=== PATIENT | female | born 1975 | race Caucasian/White ===

== ENCOUNTER 2018-11-19 09:47 | Observation (INO) ==
[2018-11-14 13:28] LABS: URINE SOURCE CLEAN CATCH
[2018-11-14 13:39] LABS: BASO# 0.02 X1000 (0.0-0.2); BASO% 0.3 % (0.0-0.8); EOS# 0.21 X1000 (0.0-0.7); HEMATOCRIT 39.2 % (37.0-47.0); IMM GRAN# 0.03 X1000 (0.0-0.04); IMM GRAN% 0.4 % (0.0-0.5); LYMPH# 1.38 X1000 (1.2-3.4); LYMPH% 19.9 % (20.5-51.1); MCH 29.5 PG (27-31); MCHC 33.2 g/dL (33-37); MCV 88.9 FL (81-99); MONO% 7.2 % (1.7-9.3); MPV 10.9 FL (7.4-10.4); NEUT# 4.79 X1000 (1.4-6.5); NEUT% 69.2 % (42.2-75.2); PLT 206 X1000 (130-400); RBC 4.41 XMIL (4.2-5.4); RDW 14.5 % (11.5-14.5); WBC 6.93 X1000 (4.8-10.8)
--- NOTE | 2018-11-14 13:43 | EKG Report ---
Test Performed on : 11/14/2018 12:54:12 PM Test Reason : PAT Blood Pressure : / mmHG Vent. Rate : 063 BPM Atrial Rate : 063 BPM P-R Int : 148 ms QRS Dur : 078 ms QT Int : 390 ms P-R-T Axes : 025 036 031 degrees QTc Int : 399 ms Normal sinus rhythm. Cannot rule out Anterior infarct , age undetermined Abnormal ECG No previous ECGs available Confirmed by Raudel PEDRAZA, Micah Valencia ([id number]) on 11/17/2018 4:37:43 PM
[2018-11-14 13:46] LABS: INR 1.02; PROTIME 14.2 Seconds (11.0-16.0)
[2018-11-14 13:50] LABS: BILIRUBIN URINE NEGATIVE (NEGATIVE); BLOOD URINE NEGATIVE (NEGATIVE); COLOR YELLOW; GLUCOSE URINE NEGATIVE (NEGATIVE); KETONE URINE NEGATIVE (NEGATIVE); LEUKOCYTES URINE NEGATIVE (NEGATIVE); NITRITE URINE NEGATIVE (NEGATIVE); PROTEIN URINE NEGATIVE (NEGATIVE); SP GRAVITY URINE 1.013; TURBIDITY URINE CLEAR (CLEAR); UR EPITHELIAL CELLS <10 /HPF (<10); URINE BACTERIA NEGATIVE /HPF; URINE RBC <10 /HPF (<10); URINE WBC <10 /HPF (<10); UROBILINOGEN URINE NORMAL (NORMAL)
[2018-11-14 14:46] LABS: AGAP 9; BUN 10 mg/dL (8-22); CALCIUM 8.6 mg/dL (8.8-10.2); CHLORIDE 104 mmol/L (98-107); COSMO 276; CREATININE 0.8 mg/dL (0.5-0.9); ESTIMATED GFR > 60; GLUCOSE 91 mg/dL (70-104); POTASSIUM 4.3 mmol/L (3.5-5.1); SODIUM 139 mmol/L (136-145); TCO2 26 mmol/L (25-35)
[2018-11-19] MEDS ORDERED: PEPCID ONE (10:25)
[2018-11-19] MEDS ORDERED: COLACE ONE (10:25)
[2018-11-19] MEDS ORDERED: REGLAN ONE (10:25)
[2018-11-19] MEDS ORDERED: KEFZOL 1 GM/D5W 2 GM/100 ML IVPB ONE (10:26)
[2018-11-19] MEDS ORDERED: LYRICA ONE (10:26)
[2018-11-19] MEDS ORDERED: LR 1,000 ML ONE (10:26)
[2018-11-19] MEDS ORDERED: CELEBREX ONE (10:26)
[2018-11-19] MEDS ORDERED: TORADOL ONE (11:19)
[2018-11-19] MEDS ORDERED: VANCOMYCIN ONE (11:19)
[2018-11-19] MEDS ORDERED: MARCAINE 0.25% PF/EPI 1:200,000 ONE (11:19)
[2018-11-19] MEDS ORDERED: DURAMORPH ONE (11:19)
[2018-11-19] MEDS ORDERED: EXPAREL 1.3% ONE (11:20)
[2018-11-19] MEDS ORDERED: SODIUM CHLORIDE 0.9% ONE (11:20)
[2018-11-19] MEDS ORDERED: NEOSPORIN G.U. IRRIGANT ONE (11:20)
[2018-11-19] MEDS ORDERED: XYLOCAINE-MPF 2% ONE (11:28)
[2018-11-19] MEDS ORDERED: DIPRIVAN 1% ONE (11:28)
[2018-11-19] MEDS ORDERED: VERSED ONE (11:34)
[2018-11-19] MEDS: CYKLOKAPRON 1,000 MG/NS 1,000 MG/100 ML IVPB ONE ×2 (11:50→13:00)
[2018-11-19] MEDS ORDERED: FENTANYL ONE (12:06)
[2018-11-19] MEDS ORDERED: DECADRON ONE (12:13)
[2018-11-19] MEDS ORDERED: OFIRMEV 1000 MG/ISOTONIC SOLN 1,000 MG/100 ML BOTTLE ONE (12:16)
[2018-11-19] MEDS ORDERED: ZOFRAN ONE (12:16)
[2018-11-19 13:00] LABS: URINE SOURCE CATH
[2018-11-19 13:04] LABS: BILIRUBIN URINE NEGATIVE (NEGATIVE); BLOOD URINE NEGATIVE (NEGATIVE); COLOR STRAW; GLUCOSE URINE NEGATIVE (NEGATIVE); KETONE URINE NEGATIVE (NEGATIVE); LEUKOCYTES URINE NEGATIVE (NEGATIVE); NITRITE URINE NEGATIVE (NEGATIVE); PROTEIN URINE NEGATIVE (NEGATIVE); TURBIDITY URINE CLEAR (CLEAR); UR EPITHELIAL CELLS <10 /HPF (<10); URINE BACTERIA NEGATIVE /HPF; URINE RBC <10 /HPF (<10); URINE WBC <10 /HPF (<10); UROBILINOGEN URINE NORMAL (NORMAL)
--- NOTE | 2018-11-19 13:34 | OPERATIVE NOTE ---
PROCEDURE DATE: 11/19/2018 PREOPERATIVE DIAGNOSIS: Degenerative joint disease, right knee. POSTOPERATIVE DIAGNOSIS: Degenerative joint disease, right knee. PROCEDURE PERFORMED: Right total knee arthroplasty. SURGEON: Chidi Rabago MD AERIAL TRAM OPERATOR: CALIXTO Hollis. Mr. Day was necessary for proper retraction and manipulation during the case. ANESTHESIA: General. COMPLICATION: None. PROCEDURE IN DETAIL: This 43-year-old female presents for a right total knee replacement. Risks, benefits, and no guarantees were discussed, and she is willing to proceed. She was taken to the operating room and satisfactory anesthesia obtained. The right leg was prepped and draped in the usual sterile fashion. A time-out was taken to confirm operative site, procedure, and patient. The leg was wrapped in an Esmarch and tourniquet inflated to 300 mmHg. A midline incision was made over the front of the knee, followed by a quadriceps tendon-sparing arthrotomy. The patella was everted and resurfaced with freehand technique and subluxed laterally. The knee was flexed and an intramedullary hole made in the distal femur and the distal femoral cutting block secured in 5 degrees of valgus. Distal femoral resection was made and the femur sized to a DePuy Attune size 6 femoral component. The 4-in-1 block was secured the anterior posterior and the anterior, posterior, and chamfer cuts sequentially made. Care was taken to preserve the PCL and collateral ligaments. Any osteophytes were debrided from the femur. The knee was then flexed and a PCL retractor placed behind the tibia to protect the PCL and neurovascular bundle. The tibial cutting block was secured with extramedullary alignment and the tibial resection made. Flexion and extension gaps were equal with a 7 mm spacer. The tibia was sized to a size 6 tibial tray. A trial reduction revealed good range of motion and stability with a 7 mm rotating platform trial poly. The patella was sized to a 35 medialized dome patella. Midline patellar tracking was noted. The lug holes were placed for the femoral implant and the patellar implant and the trial components removed. The bony surfaces were thoroughly irrigated with pulsatile lavage. Cement with 1 g vancomycin was utilized to cement a DePuy Attune size 6 rotating platform tibial tray, a size 6 regular width right cruciate retaining femoral component, and a 35 medialized dome patella. Excess cement was removed with a Sharps elevator. While the cement cured, the joint capsule was injected with Exparel and a Hemovac drain placed. After curing of the cement, a size 6, 7 mm thick polyethylene bearing was inserted into the tibial tray and the knee reduced. Final range of motion was 0 to 130 degrees with midline patellar tracking. The arthrotomy was then copiously irrigated with irrigant. It was closed over the drain with #1 Vicryl in the arthrotomy, 2-0 Vicryl in the subcutaneous, and skin yesika on the skin edges. Sterile dressings completed the closure and the patient was recovered from anesthesia and transferred to the recovery room in stable condition. No intraoperative complications were noted. Instrument count and sponge count were correct at the time of closure. cc: Po Rabago MD
[2018-11-19] MEDS: DILAUDID ONE ×4 (13:52→14:09)
--- NOTE | 2018-11-19 14:08 | Diag Imaging Result Doc PS360 ---
EXAM: KNEE 1-2 VIEWS-RIGHT HISTORY: post op TECHNIQUE: Right knee, two views COMPARISON: None. FINDINGS: There has been recent orthopedic replacement of the right knee. There are anterior skin yesika and a superior surgical drain. No fracture. No dislocation. IMPRESSION: Good alignment to the femoral and tibial components following orthopedic replacement of the knee. Electronically signed by Saad Dumas 11/19/2018 2:06 PM
[2018-11-19] MEDS ORDERED: PHENERGAN ONE (14:23)
--- NOTE | 2018-11-19 14:23 | ORTHOPAEDICS PROGRESS NOTE ---
DATE: 11/19/2018 Ms. Escobar is seen status post knee replacement in the recovery room. Presently, she is afebrile with stable vital signs. Her bandage is clean and dry. There are no signs of active bleeding. She appears to be motor and sensory intact with good capillary refill. We will plan on mobilizing her later today or tomorrow and discharge home tomorrow. cc: Po Rabago MD
[2018-11-19] MEDS ORDERED: OXY IR ONE (14:52)
[2018-11-19] MEDS ORDERED: NS 1,000 ML ONE (14:55)
[2018-11-19] MEDS ORDERED: ZOFRAN IV PRN (15:00)
[2018-11-19] MEDS ORDERED: MORPHINE IV PRN ×3 (15:00)
[2018-11-19] MEDS ORDERED: ZOFRAN ODT PO PRN (15:00)
[2018-11-19] MEDS ORDERED: CHLORASEPTIC SPRAY MT PRN (15:27)
[2018-11-19] MEDS: TYLENOL PO SCH (17:21)
[2018-11-19] MEDS: OXY IR PO PRN ×3 (17:22→22:45)
[2018-11-19] MEDS ORDERED: KLONOPIN PO PRN (17:57)
[2018-11-19] MEDS: ULTRAM PO SCH (18:20)
[2018-11-19] MEDS: KEFZOL 2 GM/D5W 2 GM/50 ML IVPB IV SCH (21:29)
[2018-11-19] MEDS: CELEBREX PO SCH (21:30)
[2018-11-19] MEDS: PERIDEX MT SCH (21:30)
[2018-11-19] MEDS: COLACE PO SCH (21:30)
[2018-11-20] MEDS: TYLENOL PO SCH ×2 (01:09→14:47)
[2018-11-20] MEDS: ULTRAM PO SCH ×3 (01:10→14:48)
[2018-11-20] MEDS: OXY IR PO PRN ×4 (02:33→11:53)
[2018-11-20] MEDS: KEFZOL 2 GM/D5W 2 GM/50 ML IVPB IV SCH (04:46)
[2018-11-20 05:56] LABS: HEMATOCRIT 32.6 % (37.0-47.0); HEMOGLOBIN 10.6 g/dL (12.0-16.0)
[2018-11-20 06:20] LABS: AGAP 9; BUN 10 mg/dL (8-22); CALCIUM 7.6 mg/dL (8.8-10.2); CHLORIDE 107 mmol/L (98-107); COSMO 276; CREATININE 0.8 mg/dL (0.5-0.9); ESTIMATED GFR > 60; GLUCOSE 116 mg/dL (70-104); POTASSIUM 3.9 mmol/L (3.5-5.1); SODIUM 138 mmol/L (136-145); TCO2 22 mmol/L (25-35)
[2018-11-20 07:39] VITALS: BP 124/81
--- NOTE | 2018-11-20 07:56 | ORTHOPAEDICS PROGRESS NOTE ---
DATE: 11/20/2018 SUBJECTIVE DATA: Ms. Escobar is seen postop day 1 of right total knee replacement. She reports her current pain level is a 6/10. She reports she has not met with Physical Therapy at this time. OBJECTIVE DATA: There is good sensation, right lower extremity. There are good pedal pulses. There is good capillary refill. The bandages are clean and dry. There is negative Homans sign. The patient is able to flex her quadriceps muscles without difficulty. ASSESSMENT: Degenerative joint disease, right knee, with total knee arthroplasty. PLAN: We plan on sending Ms. Escobar home today with aspirin 325 twice daily to prevent DVTs. Will also give her [place] 10 for pain. We have placed her on doxycycline for prophylaxis. She will begin outpatient therapy right away with [facility] in [place]. She will need to follow up in the office in roughly 10 to 14 days for her staple removal. Will check back on her then. Dictated by CALIXTO Hollis for Po Rabago MD cc: CALIXTO Hollis MD
[2018-11-20] MEDS: PERIDEX MT SCH (07:59)
[2018-11-20] MEDS: CELEBREX PO SCH (08:00)
[2018-11-20] MEDS: COLACE PO SCH (08:03)
[2018-11-20] MEDS ORDERED: PEPCID PO SCH (09:00)
[2018-11-20] MEDS ORDERED: ASPIRIN PO SCH (09:00)
[2018-11-20] MEDS ORDERED: CARDIZEM CD PO SCH (09:00)
== END 2018-11-20 15:02 | disposition home health service (06) ==
LOC: 4N 09:47 → OR 09:47
PROVIDERS: ADMIT Orthopaedic Surgery Adult Reconstructive Orthopaedic Surgery; ATTEND Orthopaedic Surgery Adult Reconstructive Orthopaedic Surgery
CPT/HCPCS: 73560; 80048; 81001; 81025; 85014; 85018; 85025; 85610; 85730; 86850; 86900; 86901; 88305; 88311; 93005; 93010; 94761; 94799; 97110; 97116; 97162; 97530; A9270; C9290; J0131; J0690; J1100; J1170; J1885; J2250; J2274; J2275; J2405; J2550; J3010; J3370; J7030; J7120; Q9974; S0020